=== PATIENT | female | born 1950 | race Caucasian/White ===

== ENCOUNTER 2016-07-10 12:50 | Outpatient (CLI) | payer OTHER, MEDICARE | END 2016-07-10 19:44 | disposition home or self-care (01) | LOC: SMA 12:50 | PROVIDERS: ATTEND Family Medicine | DX: N63 Unspecified lump in breast (principal) | CPT/HCPCS: 76641; G0204; 77067; G0206 ==

== ENCOUNTER 2017-04-24 12:30 | Outpatient (CLI) | payer OTHER, MEDICARE | END 2017-04-24 18:41 | disposition home or self-care (01) | LOC: SMA 12:30 | PROVIDERS: ATTEND Family Medicine | DX: N63.21 Unspecified lump in the left breast, upper outer quadrant (principal); N64.89 Other specified disorders of breast | CPT/HCPCS: 76641; 77066 ==

== ENCOUNTER 2018-07-08 08:29 | Outpatient (CLI) | payer OTHER, MEDICARE | END 2018-07-08 20:37 | disposition home or self-care (01) | LOC: SMA 08:29 | PROVIDERS: ATTEND Family Medicine | DX: N60.01 Solitary cyst of right breast (principal); N60.02 Solitary cyst of left breast | CPT/HCPCS: 76641; 77066 ==

== ENCOUNTER 2019-12-27 08:28 | Outpatient (CLI) | payer OTHER, MEDICARE | END 2019-12-27 20:48 | disposition home or self-care (01) | LOC: SMA 08:28 | PROVIDERS: ATTEND Family Medicine | DX: N63.11 Unspecified lump in the right breast, upper outer quadrant (principal); N64.9 Disorder of breast, unspecified | CPT/HCPCS: 76641; 77066 ==

== ENCOUNTER 2020-12-28 10:24 | Outpatient (CLI) | payer OTHER, MEDICARE | END 2020-12-28 19:52 | disposition home or self-care (01) | LOC: SMA 10:24 | PROVIDERS: ATTEND Family Medicine | DX: N63.21 Unspecified lump in the left breast, upper outer quadrant (principal); N60.01 Solitary cyst of right breast; R92.2 Inconclusive mammogram; N64.4 Mastodynia; N63.10 Unspecified lump in the right breast, unspecified quadrant | CPT/HCPCS: 76641; 77066 ==

== ENCOUNTER 2022-04-25 12:45 | Outpatient (CLI) | payer OTHER, MEDICARE | END 2022-04-25 21:19 | disposition home or self-care (01) | LOC: SMA 12:45 | PROVIDERS: ATTEND Family Medicine | DX: N63.21 Unspecified lump in the left breast, upper outer quadrant (principal); R92.2 Inconclusive mammogram; N64.89 Other specified disorders of breast | CPT/HCPCS: 77066 ==